=== PATIENT | female | born 1950 | race Caucasian/White ===

== ENCOUNTER 2019-10-18 15:51 | Emergency (ER) | payer MEDICARE ==
[~2019-10-18] VITALS: Ht 167.6 cm; Wt 62.2 kg
--- NOTE | 2019-10-18 16:17 | PHYS DOC ---
Past History Past Medical History: Fibromyalgia, High Cholesterol Past Surgical History: Other Additional Past Surgical Histo: mass on right side of neck Alcohol Use: None Adult General Chief Complaint Chief Complaint: SORE THROAT HPI HPI Patient is a 68-year-old female who presents to the ER with complaint of a sore throat and runny nose. Her symptoms started around noon today. She denies cough or fever. The patient is in town from [place] and she flew in 1 week ago. She is visiting her brother and taking care of him; he is currently at the [facility] secondary to cancer. Patient is concerned that she may have coronavirus based on her symptoms and recent travel. She has had no high risk exposure to any patient or person with known coronavirus and she has not been to any high risk country recently. There was a question about possible allergies but the patient states that she has been to [place] 1 time previously in May and that her allergies are usually more to fragrances. Review of Systems Review of Systems All other systems were reviewed and found to be within normal limits, except as documented in this note. Allergies Allergies Allergies Coded Allergies Type Severity Reaction Last Updated Verified No Known Drug Allergies 10/18/19 No Physical Exam Physical Exam Constitutional: Well developed, well nourished, no acute distress, non-toxic appearance. [] HENT: Normocephalic, atraumatic, bilateral external ears normal, oropharynx moist, no oral exudates, there is mild clear bilateral nasal congestion, tympanic membrane's are clear bilaterally Eyes: PERRLA, EOMI, conjunctiva normal, no discharge. [] Neck: Normal range of motion, no tenderness, supple, no stridor. [] Cardiovascular:Heart rate regular rhythm, no murmur [] Lungs & Thorax: Bilateral breath sounds clear to auscultation [] Abdomen: Bowel sounds normal, soft, no tenderness, no masses, no pulsatile masses. [] Skin: Warm, dry, no erythema, no rash. [] Extremities: No tenderness, no cyanosis, no clubbing, ROM intact, no edema. [] Neurologic: Alert and oriented X 3, normal motor function, normal sensory function, no focal deficits noted. [] Psychologic: Affect normal, judgement normal, mood normal. [] Current Patient Data Vital Signs Vital Signs Date Time Temp Pulse Resp B/P (MAP) Pulse Ox O2 Delivery O2 Flow Rate FiO2 10/18/19 16:02 98.1 80 16 136/72 (93) 97 Room Air EKG EKG [] Radiology/Procedures Radiology/Procedures [] Course & Med Decision Making Course & Med Decision Making Pertinent Labs and Imaging studies reviewed. (See chart for details) This patient is seen for complaint of a sore throat and a runny nose. She denies fever, cough, shortness of breath. At this time she also denies recent exposure to patients with symptoms consistent with coronavirus or a patient with coronavirus or travel to a high risk area. She does not meet criteria for test ing at this time given her lack of symptoms. I will check her for influenza and for strep. Dragon Disclaimer Dragon Disclaimer This electronic medical record was generated, in whole or in part, using a voice recognition dictation system. Departure Departure: Impression: Primary Impression: Sore throat Additional Impression: Rhinorrhea Disposition: 01 HOME, SELF-CARE Condition: STABLE Additional Instructions: You tested negative for strep and for influenza. Continue to monitor your symptoms and if you begin to develop a fever of 100.4 or greater, shortness of breath, cough you should consider returning to the ER. You may use an [id number] antihistamine to help with your symptoms and you will also be given a prescription for diclofenac to help with your throat pain. Scripts Diclofenac Sodium (DICLOFENAC SODIUM) 75 Mg Tablet.dr 1 TAB PO BID for Sore throat for 10 Days, #20 TAB 1 Refill Prov: IVELISSE BOB DO 10/18/19 Problem Qualifiers IVELISSE BOB DO Oct 18, 2019 16:17
[2019-10-18 17:00] LABS: INFLUENZA A PATIENT NEGATIVE (NEGATIVE); INFLUENZA B PATIENT NEGATIVE (NEGATIVE)
[2019-10-18] MEDS ORDERED: DICL75TA PO (17:07)
[2019-10-18 17:17] VITALS: BP 134/70
== END 2019-10-18 17:16 | disposition home or self-care (01) ==
LOC: ER 15:51
DX: J02.9 Acute pharyngitis, unspecified (principal); J34.89 Other specified disorders of nose and nasal sinuses; M79.7 Fibromyalgia; E78.00 Pure hypercholesterolemia, unspecified
CPT/HCPCS: 87070; 87804; 87880; 99283